=== PATIENT | male | born 1985 | race Caucasian/White ===

== ENCOUNTER 2017-10-03 19:09 | Emergency (ER) | payer BC ==
[2017-10-03 19:44] VITALS: BP 148/68; PULSE 68; RESP 20; TEMP 98.2; O2SAT 99
[2017-10-03] MEDS ORDERED: BENZOCAINE 20% ORAL SPR 60 ML CAN OROPHARYNG ONE (20:15)
--- NOTE | 2017-10-03 20:17 | PD ---
HPI Chief Complaint: Oral / Dental Pain or Problem Time Seen by Provider: 20:08 Travel History International Travel<30 days: No Contact w/Intl Traveler<30days: No Traveled to known affect area: No History of Present Illness HPI Patient comes in complaining of left lower dental pain ongoing for 2 days. Patient describes pain as a pressure aching like in nature. Patient taking ibuprofen and rinsing his mouth with cold water with minimal to no relief of symptoms. Patient reports pain radiates throughout his left lower jaw and into his ear. Patient states he tried contacting a dentist without success. Pain is worse with eating or drinking anything. PFSH Past Medical History Medical History: Denies Significant Hx Diminished Hearing: No Immunizations Current: Yes Tetanus Vaccination: < 5 Years Influenza Vaccination: No Past Surgical History Surgical History: No Previous Surgery Social History Alcohol Use: Yes (1-2 WEEK) Tobacco Use: Yes (1/2) Substance Use: No Allergies-Medications (Allergen,Severity, Reaction): Coded Allergies: iodine (Verified Allergy, Unknown, 10/03/17) Reported Meds & Prescriptions Reported Meds & Active Scripts Active Diclofenac Sodium DR (Diclofenac Sodium) 75 Mg Tabdr 75 Mg PO Q12HR PRN Clindamycin (Clindamycin HCl) 150 Mg Cap 2 Cap PO Q6H 10 Days Review of Systems Except as stated in HPI: all other systems reviewed are Neg Physical Exam Narrative GENERAL: Well-developed, overly nourished, in no acute distress, and non-ill appearing. SKIN: Focused skin assessment warm and dry. HEAD: Atraumatic. Normocephalic. EYES: Pupils equal and round. EOMI. No scleral icterus. No injection or drainage. ENT: No nasal bleeding or discharge. Mucous membranes pink and moist. Poor dentition with visible and palpable abscess left lower jaw near the molars. It is tender to palpation. Submandibular, submental, and floor the mouth are 2 palpation. NECK: Trachea midline. No cervical lymphadenopathy. Supple. No nuclear rigidity. RESPIRATORY: No accessory muscle use. No respiratory distress. MUSCULOSKELETAL: No obvious deformities. No clubbing. No cyanosis. No edema. Full range of motion. NEUROLOGICAL: Awake and alert. No obvious cranial nerve deficits. Motor grossly within normal limits. Normal speech. PSYCHIATRIC: Appropriate mood and affect; insight and judgment normal. Data Data Last Documented VS Vital Signs Date Time Temp Pulse Resp B/P (MAP) Pulse Ox O2 Delivery O2 Flow Rate FiO2 10/03/17 19:44 98.2 68 20 148/68 (94) 99 Orders Orders Benzocaine 20% Oral Spr (Hurricaine 20% (10/03/17 20:15) Ed Discharge Order (10/03/17 20:28) Clindamycin (Cleocin) (10/03/17 20:45) MDM Medical Decision Making Medical Screen Exam Complete: Yes Emergency Medical Condition: Yes Differential Diagnosis Dental abscess, dental infection, dentalgia Narrative Course The patient presented with dental pain. There is no fever. There is no significant facial swelling or evidence of cellulitis. There is poor dentition and evidence of drainable abscess. The abscess was drained intraorally. The patient tolerated the procedure well. There is no evidence of significant deep or invading abscess at this time. The patient will be placed on antibiotics and pain medication. The patient was instructed to follow up with a dentist. The patient was given the dental referral sheet. Warnings were discussed with the patient regarding worsening of infection. The patient is to return if pain worsens, develops progressive swelling or facial redness or fever. The patient agrees with plan. Patient in no obvious distress upon re-evaluation. Patient was asked if they wanted to speak to my attending, which the patient did not wish to do at this time. Any questions/concerns in reference to patient diagnosis/condition discussed and clarified prior to patient's discharge. Reinforced sheer importance of close follow up with patient's primary physician or primary care clinic and/or dentist. Instructed patient to return to ED immediately, if symptoms return/worsen. Patient showed understanding of above instructions. Further instructions and recommendations were detailed in discharge paperwork. Patient ambulated without difficulty out of ED at discharge. Procedures Procedure Narrative Verbal consent was obtained. Topical Hurricaine spray was used to successfully anesthetized the abscess. A #15 scalpel used to make 1 cm incision across the area of abscess and purulent discharge was drained. Patient tolerated procedure well. There were no complications. Diagnosis Primary Impression: Dental abscess Patient Instructions: Dental Abscess (GEN), Dental Caries (DC), General Instructions Additional Instructions: Follow-up with your primary care physician and dentist as soon as possible. Rinse mouth with warm salt water gargles. Take all medication as prescribed. Return to the emergency department if symptoms get worse. Med/Other Pt SpecificInfo: Prescription(s) given Scripts Diclofenac Sodium DR (Diclofenac Sodium DR) 75 Mg Tabdr 75 MG PO Q12HR Y for PAIN SCALE 1 TO 10, #14 TAB 0 Refills Prov: Johnson Scruggs MD 10/03/17 Clindamycin (Clindamycin) 150 Mg Cap 2 CAP PO Q6H for Infection for 10 Days, #80 CAP 0 Refills Prov: Johnson Scruggs MD 10/03/17 Disposition: 01 DISCHARGE HOME Condition: Stable Cornelio Hayden Oct 03, 2017 20:17
[2017-10-03] MEDS ORDERED: CLIN150C14 PO (20:18)
[2017-10-03] MEDS ORDERED: DICL75TA PO (20:18)
[2017-10-03] MEDS ORDERED: CLINDAMYCIN 150 MG CAP PO ONE (20:45)
== END 2017-10-03 20:58 | disposition home or self-care (01) ==
LOC: PHEFT 19:09
DX: K04.7 Periapical abscess without sinus (principal); F17.200 Nicotine dependence, unspecified, uncomplicated
CPT/HCPCS: 41800